=== PATIENT | female | born 1980 | race Caucasian/White ===

== ENCOUNTER 2016-07-23 06:31 | Inpatient (IN) | payer MEDICARE, MEDICAID ==
[~2016-07-23] VITALS: Ht 167.6 cm; Wt 79.1 kg
--- NOTE | ~2016-07-23 | CATH ---
Cardiac Diagnostic + PCI Report Demographics Patient Name TERA Keyes Gender Female Date of 1980 Age 35 year(s) Patient Number [id number] Date of Study 07/26/2016 Visit Number [id number] Room Number 416 [employer] ID Ht 167.64 cm Wt 84.82 kg Accession Number [id number] BSA 1.94 m kg/m Referring Minor Saeed Primary Physician Physician Caroline Castano MD Secondary Physician Physician Louie Diagnostic Eyad MORRIS Assisting Physician Physician Louie Interventional Eyad MORRIS Physician Gymnasium Teacher Physician Louie Findings and Conclusions Diagnostic Findings and Conclusion 1. Severe single vessel CAD with Prox LAD 70%. Diagnostic Recommendations 1. FFR of LAD Interventional Findings and Conclusion 1. iFR of 0.56 indicating this was hemodynamically significant. 2. IVUS pre and post PCI for sizing of stent. MLA of 2.4 mm2. 3. Successful PCI to Prox LAD with 3.5 x 28 Synergy stent. Interventional Recommendations 1. DAPT for minimum of 1 year and risk factor modification. Procedure Description The patient was brought to the diagnostic cardiac catheterization-laboratory in the fasting, non-sedated state. Informed consent was obtained in the written and verbal form after the risks and benefits were explained. The patient had no further questions and agreed to proceed. The planned puncture-incision site(s) were shaved and prepped with ChloraPrep and draped in the usual sterile manner. Conscious sedation, supplemental oxygen, and pain control medications were delivered by a registered nurse under physician guidance. Surface ECG rhythm, blood pressure measurement, and pulse oximetry were monitored throughout the procedure. Arterial access. The right femoral access site was infiltrated with lidocaine. The vessel was entered with the Seldinger technique. A 6F sheath was advanced into the vessel and used for catheter placement. Selective left coronary angiography. A catheter was advanced into the left coronary vessel ostium under Fluoroscopic guidance. Contrast was injected by hand. Images were obtained in multiple projections. Selective right coronary angiography. A catheter was advanced into the right coronary vessel ostium under fluoroscopic guidance. Contrast was injected by hand. Images were obtained in multiple projections. Left heart catheterization with ventriculography. A catheter was advanced across the aortic valve to the left ventricle under fluoroscopic guidance. Resting hemodynamics were obtained. With the catheter at the left ventricular apex, contrast was injected. Images were obtained in BAHRAINI projections. Post-ventriculography LV pressure was obtained. The catheter was gradually withdrawn into the aorta with continuous pressure recording. iFR measurement was performed. The Prox LAD vessel was entered with a guiding catheter. The iFR wire was normalized and then advanced across the lesion. Measurements were taken. IVUS was performed. The prox LAD vessel was cannulated. An .014 interventional wire was advanced across the lesson into the distal vessel. The IVUS catheter was advanced into position and imaging was performed. Vessel dimensions were measured. Angioplasty and Stent Placement: A XB 3.5 guiding catheter was used to intubate the vessel. A 0.14 wire was then used to cross the lesion. A 3.0 x 15 Emerge balloon catheter was placed across the lesion and inflated. The balloon catheter was then removed. A 3.5 x 28 Drug Eluting Stent was placed and inflated. Post placement angiograms were performed. Arterial artery hemostasis was achieved with Perclose. The patient was transferred to a regular nursing floor via cart accompanied by a nurse. The patient left the laboratory in stable condition. Diagnostic Cath Status: Urgent Procedure Procedure Type Diagnostic procedure:Angiography:, Coronary Angios w/[facility] PCI procedure:Drug Eluting Coronary Stent:, LAD, Additional Imaging:, FFR/iFR:, IVUS:, Initial Vessel Indications: Shortness of breath, Hyperlipidemia, Hypertension, CHF, Diabetes, Acute Heart Failure, Cardiomyopathy and Tachycardia. The procedure was explained in detail to the patient. Risks, complications and alternative treatments were reviewed. Written consent was obtained. Medications Reviewed with Patient prior to Procedure. Complications: No Complication. Angiographic Findings Dominance: Right Cardiac Arteries and Lesion Findings LMCA: Normal (0% Stenosis). LAD: Abnormal. Lesion on Prox LAD: 60% stenosis . Devices used - VERRATA. Number of passes: 1. - CATH BAL RX EMERGE 3.0X15. 1 inflation(s) to a max pressure of: 10 marlen. - CATH STENT SYNERGY 3.5 X 28. 1 inflation(s) to a max pressure of: 16 marlen. Lesion on Mid LAD: 50% stenosis . Lesion on Dist LAD: 60% stenosis . LCx: Normal (0% Stenosis). RCA: Normal (0% Stenosis). Coronary Tree Procedure Data Procedure Date Date: 07/26/2016Start: 10:32 AM Entry Locations - Percutaneous access was performed through the Right Femoral artery (Primary location). A 6 Fr sheath was inserted. Hemostasis was successfully obtained using Perclose ProGlide (Reddy). Procedure Medications Order and Administration + + + +--------+ !Time !Medication !Dosage !Route ! + + + +--------+ !07/26/2016 10:30 AM !Versed !2 mg !I.V. ! + + + +--------+ 07/26/2016 10:30 AM !Fentanyl !50 mcg !I.V. ! + + + +--------+ 07/26/2016 10:30 AM !Sodium Chloride !10 ml !I.V. ! + + + +--------+ 07/26/2016 11:13 AM !Heparin (ACC_3) !5000 units !I.V. ! + + + +--------+ !07/26/2016 11:04 AM !Fentanyl !50 mcg !I.V. ! + + + +--------+ !07/26/2016 11:17 AM !Oxygen !4 l/min !NC ! + + + +--------+ !07/26/2016 11:35 AM !Heparin (ACC_3) !3000 units !I.V. ! + + + +--------+ !07/26/2016 11:49 AM !Fentanyl !50 mcg !I.V. ! + + + +--------+ !07/26/2016 11:51 AM !Heparin (ACC_3) !2000 units !I.V. ! + + + +--------+ !07/26/2016 11:33 AM !Brilinta (Ticagrelor) (ACC_20) !180 mg !P.O. ! + + + +--------+ Devices Used - ACATH 6FR MULTIPACK CATHETERSwas used for:Coronary Angios. - ACATH 5F PRC CATHETER 100CMwas used for:Right coronary angiography. - AGUIDE CATHETER 6FR XB 3.5 100CMwas used for:Fractional Flow [place] measurments. - ACATH 6FR PIG 145 110CM CATHETERwas used for:LV Pressures. - AGUIDELINER CATHETER. Contrast Material - Isovue 752775 ml Fluoroscopy Dose: Diagnostic: 1606 mGy. Total: 1606 mGy. Medical History Allergies - Other:(PCN, ZITHROMAX, CEPHALOSPORINS, TETANUS VACCINE, FLUOXETINE, SERTRALINE). Risk Factors The patient risk factors include:treated hypertension, insulin-treated diabetes mellitus, chronic lung disease, last creatinine: 1 mg/dl, creatinine clearance: 103.14 ml/min, dyslipidemia and prior heart failure . Admission Data Admission Date: 07/23/2016 Admission Time: 09:40 AM Insurance Payors: Medicare. Clinical Evaluation Leading to Procedure Diagnosed on 07/26/2016 08:00 AM. - The patient's CAD presentation was assessed as: Unstable angina. - The patient's anginal syndrome during the past two weeks was assessed as: Class III according to the [place] Cardi[employer] Classification System (CCS). 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 Hemodynamics Condition: Rest O2 Consumption: Estimated: 220.49Heart Rate: 98 bpm Pressures (mmHg) +-----+ + !Site !Pressure ! +-----+ + !AO !134/82 (99) ! +-----+ + !LV !117/5 ,17 ! +-----+ + !AO !114/68 (86) ! +-----+ + !LV !126/7 ,22 ! +-----+ + Valve Gradients and Areas + +---------+---------+---------+ +---------+ + !Valve !Peak !Mean !Area !Index !Flow !Source ! + +---------+---------+---------+ +---------+ + !Aortic !13 !19 ! ! ! ! ! + +---------+---------+---------+ +---------+ + !Aortic !13 !19 ! ! ! ! ! + +---------+---------+---------+ +---------+ + Shunts Oxygen Values O2 Capacity 137.36 O2 Consumption 220.49 Discharge Data Discharge Date: 07/28/2016 Hospital Status: Inpatient Signatures
--- NOTE | 2016-07-23 17:07 | ER ---
ADMIT: 07/23/2016 RM/LOC: 420 [facility] MR#: [id number] [address] [address] FADY HALEY [address] [place] [address] Emergency Room Report SEX: F AGE: 35 : 1980 DATE: 07/23/2016 ADDENDUM: This is a 35-year-old white female with multiple comorbidities, but essentially she has cardiac myopathy with congestive heart failure. She was seen yesterday by Cardiology, they had done some tests and echoes, results show that she is somewhat fluid overloaded. 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 She does have hypertension, diabetes, depression, and higher functioning mental retardation according to old records. Has had some multiple surgeries as well. At this time, we put an IV in her and gave her 40 of Lasix after I talked to Dr. Castano. Dr. Gaxiola, her primary care will admit who was on-call for her. CONDITION ON DISCHARGE: Serious but stable. Sidney Keyes MD/ alyssa JOB #: [id number] CC: Christophe Gaxiola MD, Attending Physician Christophe Gaxiola MD, Family Physician
[2016-07-29] MEDS ORDERED: CRESTOR40 MG PO (11:34)
[2016-07-29] MEDS ORDERED: [UNRECOGNIZED DRUG - OTHER] PO (11:34)
[2016-07-29] MEDS ORDERED: SENNA S TABLET1 EACH PO (11:35)
[2016-07-29] MEDS ORDERED: GLUCOPHAGE-DPS500 MG PO (11:35)
[2016-07-29] MEDS ORDERED: GLIMEPIRIDE4 MG PO (11:36)
[2016-07-29] MEDS ORDERED: FEOSOL-DPS325 MG PO (11:36)
[2016-07-29] MEDS ORDERED: PRILOSEC DPS20 MG PO (11:36)
[2016-07-29] MEDS ORDERED: LASIX40 MG PO (11:36)
[2016-07-29] MEDS ORDERED: VITAMIN D1000 UNIT PO (11:36)
[2016-07-29] MEDS ORDERED: CORLANOR7.5 MG PO (11:37)
[2016-07-29] MEDS ORDERED: COREG DPS12.5 MG PO (11:37)
[2016-07-29] MEDS ORDERED: LANTUS100 UNITS/ SQ (11:37)
[2016-07-29] MEDS ORDERED: KLOR-CON M2020 ME1 PO (11:38)
[2016-07-29] MEDS ORDERED: ENTRESTO 24 MG1 EACH PO (11:38)
[2016-07-29] MEDS ORDERED: ASA CHILDREN'S81 MG PO (11:38)
[2016-07-29] MEDS ORDERED: FLONASE 0.05% D16 GM NS (11:38)
[2016-07-29] MEDS ORDERED: BRILINTA90 MG PO (11:38)
[2016-07-29] MEDS ORDERED: NOVOLOG100 UNIT/2 SQ (11:39)
[2016-07-29] MEDS ORDERED: GLUTOSE 1537.5 GM PO ×2 (11:40→11:41)
[2016-07-29] MEDS ORDERED: NITROSTAT0.4 MG SL (11:41)
[2016-07-29] MEDS ORDERED: MAALOX DPS30 ML PO (11:41)
[2016-07-29] MEDS ORDERED: TYLENOL DPS325 MG PO (11:41)
[2016-07-29] MEDS ORDERED: SURFAK DPS240 MG PO (11:41)
--- NOTE | 2016-08-05 19:48 | HP ---
ADMIT: 07/23/2016 RM/LOC: 420 [facility] MR#: [id number] [address] [address] FADY HALEY [address] [place] [address] History and Physical SEX: F AGE: 35 : 1980 DATE OF SERVICE: 07/23/2016 CHIEF COMPLAINT: Shortness of breath. HISTORY OF PRESENT ILLNESS: This is a very pleasant 35-year-old white female, who normally is cared for by Dr. Gaxiola in our office, who presented to the emergency room with shortness of breath. She apparently had been over at [facility] yesterday, undergoing workup for possible cardiomyopathy, had some volume overload at that point, and about midnight, became extremely short of breath, could not lay down flat, had to sit up. Got through the rest of the night, but was pretty uncomfortable. She came to the emergency room this morning where she was found to have acute exacerbation of systolic heart failure and was given IV Lasix and now is being admitted for further cardiac workup and diuresis. She does complain of some left-sided chest discomfort. It is more left lateral area, it is more when she coughs. She has had pneumonia before and she is obviously concerned about developing this again. PAST MEDICAL HISTORY: Remarkable for hypertension, diabetes mellitus type 2, diverticulosis, mental disability, generalized anxiety disorder, depression, migraine headaches, gastroesophageal reflux disease, chronic kidney disease, hyperlipidemia, hypothyroidism, prior history of nonischemic cardiomyopathy. SURGERIES: Include tympanostomy tubes, cholecystectomy, left ear surgery, and a right bunionectomy. CURRENT MEDICATIONS: Include: 1. Fluticasone 2 sprays b.i.d. 2. Lantus 20 units subcu at bedtime. 3. Carvedilol 12.5 mg 1 tab b.i.d. 4. Hydralazine 100 mg t.i.d. 5. Corlanor 7.5 mg b.i.d. 6. Ferrous sulfate 325 mg b.i.d. 7. Hydrochlorothiazide 25 mg daily. 8. Spironolactone 50 mg daily. 9. Glimepiride 4 mg b.i.d. 10.Losartan 100 mg daily. 11.Furosemide 10 mg daily. 12.Amlodipine 5 mg b.i.d. 13.Verapamil ER 240 mg b.i.d. 14.Omeprazole 20 mg b.i.d. 15.Flecainide 150 mg b.i.d. 16.Vitamin D 1000 International Units daily. 17.Senna-S 8.6/50 mg at bedtime. 18.Amitriptyline 150 mg at bedtime. 19.Metformin 1000 mg b.i.d. 20.Crestor 40 mg b.i.d. ALLERGIES: INCLUDE CEPHALOSPORINS, CEPHALEXIN, FLUOXETINE, SERTRALINE, AND TETANUS. ADMIT: 07/23/2016 RM/LOC: 420 [facility] MR#: [id number] [address] [address] [place] [address] History and Physical SEX: F AGE: 35 : 1980 FAMILY HISTORY: Father had coronary artery disease and hypertension. Mother with hypertension. SOCIAL HISTORY: She is single, is a student at [employer]. Does not smoke or drink alcohol. REVIEW OF SYSTEMS: GENERAL: No fevers or chills. HEENT: No headaches, blurry vision, double vision. CARDIAC: Per HPI. PULMONARY: As per HPI. GI: No nausea, vomiting. : No dysuria, urgency, frequency. ENDOCRINE: No polyuria or polydipsia. PSYCH: History of anxiety and depression which is stable. All others are negative. OBJECTIVE: VITAL SIGNS: Blood pressure is 137/85, pulse 108, respirations 20, and temp 97.1. GENERAL: She is in no acute distress. She is alert and oriented. HEENT: Pupils are reactive. Conjunctivae are clear. Clear nasal mucosa. Clear oropharynx. Moist mucous membranes. NECK: Soft and supple without lymphadenopathy. No thyromegaly. LUNGS: With decreased breath sounds. HEART: Regular. ABDOMEN: Obese, soft, nontender. EXTREMITIES: No cyanosis, no clubbing, no edema. NEUROLOGIC: Cranial nerves II through XII are grossly intact. No focal deficits. LAB/X-RAY DATA: Shows a chest x-ray with interstitial edema, small bilateral pleural effusions and cardiomegaly. White count is 9400, hemoglobin 11.1, and platelets 337,000. Sodium 140, potassium 4.0, chloride 108, CO2 of 23, BUN 9, creatinine 0.9, glucose 203, calcium 8.2, total bilirubin is 1.0, total protein 6.2, albumin 3.2, alkaline phosphatase 100, AST 14, ALT 22, calcium 8.8. ProBNP is 10,957. ADMIT: 07/23/2016 RM/LOC: 420 [facility] MR#: [id number] [address] [address] [facility] [place] [address] History and Physical SEX: F AGE: 35 : 1980 ASSESSMENT: 1. Acute systolic heart failure. 2. Hypertension. 3. Diabetes mellitus type 2. 4. Mental disability. 5. Gastroesophageal reflux disease. 6. Generalized anxiety disorder. 7. Depression. PLAN: We will admit, start IV Lasix. Cardiology has been consulted. They will follow up on further workup. We will change treatment as hospital course dictates. Zach Armendariz MD/ alyssa JOB #: [id number] CC: Christophe Gaxiola, Attending Physician Christophe Gaxiola, Family Physician
--- NOTE | 2016-08-08 08:51 | DS ---
ADMIT: 07/23/2016 RM/LOC: 416 [facility] MR#: [id number] [address] [place] [address] [place], [place] [address] FADY HALEY [address] [address] General Discharge Summary SEX: F AGE: 35 : 1980 ADMISSION DATE: 07/23/2016 DISCHARGE DATE: 07/28/2016 FINAL DIAGNOSES: 1. Acute onset systolic congestive heart failure. 2. Ongoing sinus tachycardia. 3. Angina. 4. Systemic hypertension. 5. Type 2 insulin-dependent diabetes. 6. Mild mental disability. 7. Generalized anxiety disorder. 8. Depression. 9. Gastroesophageal reflux. 10.Chronic kidney disease. 11.Hyperlipidemia. 12.Hypothyroidism. 13.History of nonischemic cardiomyopathy. 14.Mild iron deficiency anemia. BRIEF HISTORY: This is a 35-year-old, woman presented to the emergency room with increasing shortness of breath. She had been at [facility] today prior, undergoing workup for possible cardiomyopathy and had volume overload at that point. At about midnight and the morning of admission, she became extremely short of breath and could lie flat and had to come in. She was given IV Lasix in the ER and was admitted for further evaluation and treatment. SIGNIFICANT LAB AND X-RAY: On admission; CBC showed hemoglobin 11 g with mildly microcytic indices, platelets of 337,000, white count 9400. Serial CBCs were followed, and by 07/28, her hemoglobin was 11.8, still with mildly microcytic indices with a white count of 3800. Serial ACTs were followed. On admission; CMP was normal, but for a glucose of 203 mg/dL, calcium of 8.2 mg/dL, and albumin 3.2 g/dL. On admission; proBNP was 10,957 pg/mL. Cardiac enzymes on admission showed them all to be normal but for a 3rd troponin minimally elevated at 0.044 ng/mL (normal 0.00 to 0.040). On 07/25; procalcitonin was 0.09 ng/mL, and lactic acid was 1.4 mmol/L. By 07/27; proBNP was 3108 pg/mL. Serum iron was 23 ug/dL (normal 37 to 170). On 07/27; total cholesterol was 74 mg/dL, triglycerides 107 mg/dL, HDL of 27 mg/dL, and LDL of 26 mg/dL. ADMIT: 07/23/2016 RM/LOC: 416 [facility] MR#: [id number] [address] [address] [place] [address] General Discharge Summary SEX: F AGE: 35 : 1980 By 07/28, BMP was normal, but for a creatinine of 1.2 mg/dL and glucose of 124 mg/dL. Serial bedside blood sugars were followed. On 07/27; ferritin was 29 ng/mL (normal 8 to 250), and C-reactive protein was 2.17 mg/dL. Chest x-ray on admission was read as "interstitial edema with small bilateral pleural effusions. The cardiac silhouette is increased in size compared to prior study. Findings suggest probable early congestive heart failure/fluid overload." Serial chest x-rays were followed and showed continued improvement. By 07/27, it was read as "negative portable chest." On 07/26/2016, she underwent heart catheterization with the findings of severe single-vessel coronary artery disease, and she received a drug-eluting stent to the proximal LAD after successful PCI, so she needs another diagnosis that would be #2 and that would be critical coronary artery disease. EKG on admission was read as "sinus tachycardia, lateral ST-T abnormalities nonspecific, compared to 04/20/2016, no significant change." Serial EKGs were followed, and by 07/26, it showed no significant change. HOSPITAL COURSE: The patient was admitted through the emergency room and imaging and laboratory studies outlined above were begun. She was placed on telemetry with routine telemetry orders. She was given Lasix 40 mg IV twice daily, continued on her home medications. Cardiology consult was requested, and they were kind enough to see her. They added hydralazine 10 mg IV q.4 hours for blood pressure greater than 140 and stopped her flecainide. By later on 07/23, she was allowed tramadol for pain. She was placed on low- dose Humalog per protocol with q.i.d. Accu-Cheks. She was given a few doses of mag sulfate. Over the next 24 hours, she was transferred to critical care with routine critical care orders for low blood pressure and dopamine drip was initiated for pressures into the high 50s systolic. Fluid boluses were also administered. Her antihypertensives were held. On 07/26, she underwent her catheterization with findings of as noted above - critical stenosis proximal LAD. She tolerated the catheterization well. Post catheterization orders were followed. By 07/27, she was feeling better. Answered questions appropriately. Her lungs were clearing. Adjustments were made in her carvedilol dose and she was started on Entresto 24/2.5 b.i.d. and Lasix 40 mg b.i.d. LifeVest consult was requested prior to discharge. By 07/28, she was clinically stable. There were no further complications. She had put out 2770 mL more than she took in and the measuring clerk felt it was ADMIT: 07/23/2016 RM/LOC: 416 [facility] MR#: [id number] [address] [address] FADY HALEY [address] [place] [address] General Discharge Summary SEX: F AGE: 35 : 1980 safe to dismiss her to home. DISCHARGE MEDICATIONS: On dismissal, her medications included: 1. Amaryl 4 mg b.i.d. 2. Aspirin 81 mg daily. 3. Brilinta 90 mg b.i.d. 4. Coreg 12.5 mg b.i.d. 5. Crestor 40 mg at bedtime. 6. Elavil 150 mg at bedtime. 7. Entresto one tab b.i.d. 8. Ferrous sulfate 325 mg b.i.d. 9. Klor-Con 20 mEq daily. 10.Lasix 40 mg daily. 11.Omeprazole 20 mg daily. 12.Corlanor 7.5 mg b.i.d. 13.Senokot 1 tab at bedtime. 14.Vitamin D 1000 units daily. 15.Flonase nasal spray 2 sprays b.i.d. 16.Lantus insulin 20 units at bedtime. 17.Sliding scale NovoLog insulin. PRN orders for: 1. Glucose. 2. Maalox. 3. Surfak. 4. Tylenol. 5. Nitrostat. Arrangements were made for followup in my office in about 10 days, and she will be seen by [facility] in that same time frame. She was also placed back on metformin 1000 mg b.i.d. CONDITION ON DISCHARGE: Stable with above treatment. FINAL DISPOSITION: As noted. PROGNOSIS: Guarded. Christophe Gaxiola MD/ alyssa JOB #: [id number] CC: Christophe Gaxiola MD, Attending Physician Christophe Gaxiola MD, Family Physician Baron Yañez MD
--- NOTE | 2016-08-30 14:57 | CO ---
ADMIT: 07/23/2016 RM/LOC: 420 [facility] MR#: [id number] [address] [address] [facility] [address] [address] Consultation SEX: F AGE: 35 : 1980 DATE OF CONSULTATION: 07/23/2016 ATTENDING PHYSICIAN: Christophe Gaxiola CONSULTING PHYSICIAN: Baron Yañez MD REASON FOR CONSULTATION: Acute heart failure. HISTORY OF PRESENT ILLNESS: Ms. Haley is a pleasant 35-year-old, white female, who is normally followed by Dr. Castano in [place], was actually seen by her yesterday with consult on her at the request of Dr. Armendariz for the heart failure. She has been dyspneic since midnight, had difficulty laying flat, been orthopneic. Denies any edema. She has been having some chest pressure and shortness of breath with exertion over the past week to 10 days. She denies any fevers, chills, or cough or cold symptoms. PAST MEDICAL HISTORY: 1. History of unexplained syncope. 2. History of unexplained cardiomyopathy. 3. Sinus tachycardia. 4. History of mental retardation. 5. Diabetes. 6. Hypertension. 7. Hyperlipidemia. 8. Anxiety. 9. Hypothyroidism. MEDICATIONS: Currently include: 1. Crestor 40 mg a day. 2. Amitriptyline 150 mg a day. 3. Metformin 1000 mg p.o. b.i.d. 4. Senna 8.6 q.evening. 5. Vitamin D 1000 mg q.a.m. 6. Flecainide 150 mg b.i.d. 7. Omeprazole 20 mg b.i.d. 8. Verapamil 240 mg b.i.d. 9. Amlodipine 5 mg b.i.d. 10.Furosemide 20 mg half tablet a day. 11.Losartan 100 mg a day. 12.Glimepiride 4 mg b.i.d. 13.Spironolactone 50 mg a day. 14.Hydrochlorothiazide 25 mg a day. 15.Ferrous sulfate 325 b.i.d. 16.Carvedilol 12.5 mg b.i.d. 17.Corlentor 7.5 mg b.i.d. 18.Lantus as directed. 19.Fluticasone as needed. ALLERGIES: INCLUDE KEFLEX, ZITHROMAX, PENICILLIN, EGGS, AND GREEN BEANS. ADMIT: 07/23/2016 RM/LOC: 420 [facility] MR#: [id number] [address] [address] [place] [address] Consultation SEX: F AGE: 35 : 1980 FAMILY HISTORY: Father with nonobstructive coronary disease. Mother with no history of coronary disease. No other heritable family issues to her knowledge or father's knowledge. SOCIAL HISTORY: She is currently enrolled [employer] as a student. She is a nonsmoker. Does not use drugs. REVIEW OF SYSTEMS: A full 12-point review of systems was obtained and deemed to be negative except for that stated above in HPI. PHYSICAL EXAMINATION: VITAL SIGNS: Today, her blood pressure is 170/80 with a heart rate in the 120s. She is afebrile. O2 sats 100% on room air. GENERAL: She is a pleasant, well-nourished, well-developed white female. She is in no acute distress. NECK: Mild JVD. HEART: Tachycardic. LUNGS: Clear. ABDOMEN: Soft. EXTREMITIES: Show no cyanosis, clubbing, or edema. MUSCULOSKELETAL: Normal. NEUROLOGIC: Normal. SKIN: [place], warm, and dry. LABORATORY AND ANCILLARY DATA: Are pending and available. EKG notes sinus tachycardia. Echocardiogram yesterday notes an EF around 25% to 30%. Labs are currently pending. Chest x-ray shows minimal pulmonary edema. ASSESSMENT AND PLAN: 1. Acute new onset systolic heart failure. 2. Sinus tachycardia. 3. Angina. 4. Diabetes. 5. Hypertension. Symptoms certainly are consistent with new onset acute cardiomyopathy and possible unstable angina. We will diurese her and monitor her response to this. We will adjust her blood pressure medications to see if this helps with her symptomatology. Plan on cardiac catheterization, once euvolemic. We will discontinue her flecainide and monitor her response to this as well. Baron Yañez MD/ alyssa JOB #: [id number] CC: Christophe Gaxiola, Attending Physician Christophe Gaxiola, Family Physician
[2016-12-03] MEDS ORDERED: ELAVIL-DPS50 MG PO (20:12)
[2016-12-03] MEDS ORDERED: GLUCOPHAGE-DPS500 MG PO (20:12)
[2016-12-03] MEDS ORDERED: CRESTOR40 MG PO (20:12)
[2016-12-03] MEDS ORDERED: VITAMIN D1000 UNIT PO (20:13)
[2016-12-03] MEDS ORDERED: PRILOSEC DPS20 MG PO (20:13)
[2016-12-03] MEDS ORDERED: SENNA PLUS TAB1 EACH PO (20:13)
[2016-12-03] MEDS ORDERED: LASIX DPS40 MG PO (20:13)
[2016-12-03] MEDS ORDERED: CORLANOR7.5 MG PO (20:14)
[2016-12-03] MEDS ORDERED: CARVEDILOL25 MG PO (20:14)
[2016-12-03] MEDS ORDERED: ASPIRIN EC81 MG PO (20:14)
[2016-12-03] MEDS ORDERED: BRILINTA90 MG PO (20:14)
[2016-12-03] MEDS ORDERED: AMARYL DPS4 MG PO (20:14)
[2016-12-03] MEDS ORDERED: ENTRESTO 49 MG1 EACH PO (20:15)
[2016-12-03] MEDS ORDERED: TOUJEO SOL300 UNIT/1 SQ (20:15)
[2016-12-03] MEDS ORDERED: KLOR-CON M2020 ME1 PO (20:15)
[2016-12-03] MEDS ORDERED: NITROSTAT0.4 MG SL (20:15)
[2016-12-03] MEDS ORDERED: ADVAIR DIS1 PUFF/DO1 IH (20:16)
[2016-12-03] MEDS ORDERED: PROVENTIL HFA6.7 GM IH (20:16)
[2016-12-03] MEDS ORDERED: GLUTOSE 1537.5 GM PO (20:16)
[2016-12-03] MEDS ORDERED: TYLENOL DPS325 MG PO (20:17)
== END 2016-07-28 14:09 | disposition home or self-care (01) | DRG 246 ==
LOC: ER 06:31 → 4PCU 09:40 → 3ICU 09:40 → 4PCU 07-27 04:57
PROVIDERS: ADMIT Family Medicine
PROC: 03HY32Z Insertion of Monitoring Device into Upper Artery, Percutaneous Approach (ICD-10-PCS; principal; 2016-07-25)
PROC: 4A023N7 Measurement of Cardiac Sampling and Pressure, Left Heart, Percutaneous Approach (ICD-10-PCS; 2016-07-26)
PROC: 4A033BC Measurement of Arterial Pressure, Coronary, Percutaneous Approach (ICD-10-PCS; 2016-07-26)
PROC: B240ZZ3 Ultrasonography of Single Coronary Artery, Intravascular (ICD-10-PCS; 2016-07-26)
PROC: B2111ZZ Fluoroscopy of Multiple Coronary Arteries using Low Osmolar Contrast (ICD-10-PCS; 2016-07-26)
PROC: 027034Z Dilation of Coronary Artery, One Artery with Drug-eluting Intraluminal Device, Percutaneous Approach (ICD-10-PCS; 2016-07-26)
DX: I13.0 Hypertensive heart and chronic kidney disease with heart failure and stage 1 through stage 4 chronic kidney disease, or unspecified chronic kidney disease (principal); I50.21 Acute systolic (congestive) heart failure; N17.9 Acute kidney failure, unspecified; I42.9 Cardiomyopathy, unspecified; I95.9 Hypotension, unspecified; E11.649 Type 2 diabetes mellitus with hypoglycemia without coma; K57.90 Diverticulosis of intestine, part unspecified, without perforation or abscess without bleeding; I20.9 Angina pectoris, unspecified; E86.9 Volume depletion, unspecified; F79 Unspecified intellectual disabilities; I51.7 Cardiomegaly; F41.1 Generalized anxiety disorder; R00.0 Tachycardia, unspecified; F32.9 Major depressive disorder, single episode, unspecified; G43.909 Migraine, unspecified, not intractable, without status migrainosus; K21.9 Gastro-esophageal reflux disease without esophagitis; N18.9 Chronic kidney disease, unspecified; E78.5 Hyperlipidemia, unspecified; E03.9 Hypothyroidism, unspecified; Z79.4 Long term (current) use of insulin; Z79.84 Long term (current) use of oral hypoglycemic drugs; Z82.49 Family history of ischemic heart disease and other diseases of the circulatory system

== ENCOUNTER 2016-07-30 12:44 | Emergency (ER) | payer MEDICARE, MEDICAID ==
[~2016-07-30 12:44] MED LIST: ASA CHILDREN'S81 MG PO; BRILINTA90 MG PO; COREG DPS12.5 MG PO; CORLANOR7.5 MG PO; CRESTOR40 MG PO; ENTRESTO 24 MG1 EACH PO; FEOSOL-DPS325 MG PO; FLONASE 0.05% D16 GM NS; GLIMEPIRIDE4 MG PO; GLUCOPHAGE-DPS500 MG PO; GLUTOSE 1537.5 GM PO; KLOR-CON M2020 ME1 PO; LANTUS100 UNITS/ SQ; LASIX40 MG PO; MAALOX DPS30 ML PO; NITROSTAT0.4 MG SL; NOVOLOG100 UNIT/2 SQ; PRILOSEC DPS20 MG PO; SENNA S TABLET1 EACH PO; SURFAK DPS240 MG PO; TYLENOL DPS325 MG PO; VITAMIN D1000 UNIT PO; [UNRECOGNIZED DRUG - OTHER] PO
--- NOTE | 2016-08-07 15:21 | ER ---
ADMIT: 07/30/2016 RM/LOC: ER [facility] MR#: [id number] [id number] [facility] [address] [place], [place] [address] FADY HALEY [address] [place] [address] Emergency Room Report SEX: F AGE: 35 : 1980 DATE: 07/30/2016 ADDENDUM: See T-sheet for complete H and P. This 35-year-old, female comes in complaining of some symptoms of numbness and tingling in her right upper extremity, primarily her right hand and her right foot. This began about 5-6 hours ago. She states she feels like they are both tingly and quite numb and they were purplish colored. This lasted a short period of time, but wanted to come in and get it checked out as she still has some tingling in both the hand and the foot. PAST MEDICAL HISTORY: Significant for hypertension, diabetes, GERD, and cardiac disease and she has actually recently had a stent placed in her LAD a week ago. Actually did cath her through her right radial wrist initially and then had to do a cath through her right femoral. PHYSICAL EXAMINATION: She has good color in both the hand and the foot, it is equal bilaterally. She has good cap refill, good pulses. Good motor strength, but she does have some decreased sensation subjectively. I think it is extremely unlikely she has any sort of vascular issue as these both came on the exact same time, which is exceedingly unlikely. I did end up getting a head CT, which is entirely normal and the patient states that her symptoms are better even while she has been here in the ER and almost resolved. She does have a diagnosis of some mild mental retardation. I have discussion with the patient and her dad who is here with her that I think it is unlikely she is having any acute stroke symptoms and at this point, they are both comfortable being discharged home. I did contact Dr. Gaxiola, her primary care physician, and made aware that she was here. Her symptoms had improved and that I did not believe this is vascular and her head CT was normal. She is to follow up Dr. Gaxiola's office as needed and return for any concerning symptoms. Issa Dickerson MD/ alyssa JOB #: [id number] CC: Issa Dickerson MD, Attending Physician
[2016-12-03] MEDS ORDERED: CRESTOR40 MG PO (20:12)
[2016-12-03] MEDS ORDERED: ELAVIL-DPS50 MG PO (20:12)
[2016-12-03] MEDS ORDERED: GLUCOPHAGE-DPS500 MG PO (20:12)
[2016-12-03] MEDS ORDERED: SENNA PLUS TAB1 EACH PO (20:13)
[2016-12-03] MEDS ORDERED: PRILOSEC DPS20 MG PO (20:13)
[2016-12-03] MEDS ORDERED: LASIX DPS40 MG PO (20:13)
[2016-12-03] MEDS ORDERED: VITAMIN D1000 UNIT PO (20:13)
[2016-12-03] MEDS ORDERED: BRILINTA90 MG PO (20:14)
[2016-12-03] MEDS ORDERED: CORLANOR7.5 MG PO (20:14)
[2016-12-03] MEDS ORDERED: ASPIRIN EC81 MG PO (20:14)
[2016-12-03] MEDS ORDERED: CARVEDILOL25 MG PO (20:14)
[2016-12-03] MEDS ORDERED: AMARYL DPS4 MG PO (20:14)
[2016-12-03] MEDS ORDERED: KLOR-CON M2020 ME1 PO (20:15)
[2016-12-03] MEDS ORDERED: ENTRESTO 49 MG1 EACH PO (20:15)
[2016-12-03] MEDS ORDERED: TOUJEO SOL300 UNIT/1 SQ (20:15)
[2016-12-03] MEDS ORDERED: NITROSTAT0.4 MG SL (20:15)
[2016-12-03] MEDS ORDERED: PROVENTIL HFA6.7 GM IH (20:16)
[2016-12-03] MEDS ORDERED: ADVAIR DIS1 PUFF/DO1 IH (20:16)
[2016-12-03] MEDS ORDERED: GLUTOSE 1537.5 GM PO (20:16)
[2016-12-03] MEDS ORDERED: TYLENOL DPS325 MG PO (20:17)
== END 2016-07-30 14:43 | disposition home or self-care (01) ==
LOC: ER 12:44
DX: R20.2 Paresthesia of skin (principal); E11.9 Type 2 diabetes mellitus without complications; I10 Essential (primary) hypertension; Z88.1 Allergy status to other antibiotic agents; Z88.8 Allergy status to other drugs, medicaments and biological substances; Z79.82 Long term (current) use of aspirin; Z79.899 Other long term (current) drug therapy

== ENCOUNTER 2016-09-28 17:30 | Inpatient (IN) | payer MEDICARE, MEDICAID ==
[~2016-09-28] VITALS: Ht 167.6 cm; Wt 87.1 kg
[2016-10-01] MEDS ORDERED: [UNRECOGNIZED DRUG - OTHER] PO (17:57)
[2016-10-01] MEDS ORDERED: GLUCOPHAGE1000 MG PO (17:57)
[2016-10-01] MEDS ORDERED: CRESTOR40 MG PO (17:57)
[2016-10-01] MEDS ORDERED: PRILOSEC DPS20 MG PO (17:58)
[2016-10-01] MEDS ORDERED: SENOKOT DPS8.6 MG PO (17:58)
[2016-10-01] MEDS ORDERED: VITAMIN D1000 UNI1 PO (17:58)
[2016-10-01] MEDS ORDERED: LASIX DPS40 MG PO (17:58)
[2016-10-01] MEDS ORDERED: AMARYL DPS4 MG PO (17:59)
[2016-10-01] MEDS ORDERED: COREG DPS12.5 MG PO (17:59)
[2016-10-01] MEDS ORDERED: CORLANOR7.5 MG PO (18:00)
[2016-10-01] MEDS ORDERED: BRILINTA90 MG PO (18:00)
[2016-10-01] MEDS ORDERED: ENTRESTO 24 MG1 EACH PO (18:00)
[2016-10-01] MEDS ORDERED: ASA CHILDREN'S81 MG PO (18:00)
[2016-10-01] MEDS ORDERED: KLOR-CON M2020 ME1 PO (18:01)
[2016-10-01] MEDS ORDERED: PROAIR HFA8.5 GM IH (18:01)
[2016-10-01] MEDS ORDERED: ADVAIR DIS1 PUFF/DO1 IH (18:01)
[2016-10-01] MEDS ORDERED: GLUTOSE 1537.5 GM PO (18:02)
[2016-10-01] MEDS ORDERED: FLUTICASONE PRO16 GM NS (18:02)
[2016-10-01] MEDS ORDERED: NITROSTAT0.4 MG SL (18:02)
[2016-10-01] MEDS ORDERED: MAALOX DPS30 ML PO (18:03)
[2016-10-01] MEDS ORDERED: COLACE-DPS100 MG PO (18:03)
[2016-10-01] MEDS ORDERED: TYLENOL DPS325 MG PO (18:03)
[2016-10-01] MEDS ORDERED: FERAHEME510 MG/17 IV (18:05)
[2016-10-01] MEDS ORDERED: NOVOLOG100 UNIT/2 SQ (18:05)
--- NOTE | 2016-10-03 07:49 | HP ---
ADMIT: 09/28/2016 RM/LOC: 410 [facility] MR#: [id number] [address] [address] FADY HALEY [address] [address] History and Physical SEX: F AGE: 35 : 1980 DATE OF SERVICE: CHIEF COMPLAINT: Chest pain. HISTORY OF PRESENT ILLNESS: This is a 35-year-old white female, normally cared for by Dr. Gaxiola in our office, who presented to the emergency room with chest pain. She was in her usual state of health this morning. She took a nap, she woke up from a nap about 2:30 a.m. with severe substernal chest discomfort, which she describes as felt like an "elephant sitting on my chest." It did not radiate into her neck or to her shoulder, but it was associated with shortness of breath and diaphoresis. She was not nauseated, did not throw up. She came to the emergency room where she was given 3 sublingual nitroglycerin, which did not help her pain, but did help improve her hypertensive response. She did have a recent hospitalization for chest pain and shortness of breath ended up getting a recent stent, and she does state that this pain was exactly the same manner she had prior to having her stent. She continues to have some chest pain. She did have a mild bump in her troponin. She also reports a 5-pound weight gain from yesterday to today and therefore is being admitted for further workup and stabilization. PAST MEDICAL HISTORY: Remarkable for hypertension, cardiomyopathy, diabetes mellitus type 2, diverticulosis, mental disability, generalized anxiety disorder, depression, migraine headaches, gastroesophageal reflux disease, chronic kidney disease, hyperlipidemia, and hypothyroidism. PAST SURGICAL HISTORY: Surgeries include recent stent placement, AICD placement, tympanostomy tubes, cholecystectomy, left ear surgery, and right bunionectomy. CURRENT MEDICATIONS: Include: 1. Crestor 40 mg at bedtime. 2. Amitriptyline 150 mg at bedtime. 3. Metformin 1000 mg b.i.d. 4. Senna 8.6 mg daily. 5. Vitamin D 1000 mg q.a.m. 6. Omeprazole 20 mg b.i.d. 7. Furosemide 40 mg q.a.m. 8. Glyparamide 4 mg b.i.d. 9. Ferrous sulfate 325 mg b.i.d. 10.Carvedilol 25 mg b.i.d. 11.Corlanor 7.5 mg b.i.d. 12.Brilinta 90 mg b.i.d. 13.Baby aspirin 81 mg daily. 14.Entresto 24/26 two tabs b.i.d. 15.Klor-Con 20 mEq daily. 16.Advair 250/50 one inhalation b.i.d. 17.ProAir 2 puffs q.a.m. 18.NovoLog sliding scale. 19. control every 3 months. ADMIT: 09/28/2016 RM/LOC: 410 [facility] MR#: [id number] [id number] [address] [place] [address] History and Physical SEX: F AGE: 35 : 1980 20.Fluticasone 2 sprays b.i.d. 21.Nitrostat p.r.n. 22.Glutose p.r.n. ALLERGIES: INCLUDE CEPHALOSPORINS, FLUOXETINE, SERTRALINE, AND TETANUS. FAMILY HISTORY: Father with coronary artery disease and hypertension. Mother with hypertension. SOCIAL HISTORY: She is single, does not smoke or drink alcohol. Her father is here and is involved in her care. REVIEW OF SYSTEMS: GENERAL: No fevers or chills. HEENT: No headaches, blurred vision, or double vision. CARDIAC: As per HPI. PULMONARY: As per HPI. GASTROINTESTINAL: No nausea, vomiting, or diarrhea. GENITOURINARY: No dysuria, urgency, or frequency. ENDOCRINE: No polyuria or polydipsia. PSYCHIATRIC: History of anxiety and depression, which is stable. All others are negative. PHYSICAL EXAMINATION: VITAL SIGNS: Blood pressure 182/112 initially, now it is down in the 160s systolic, pulse 116, respirations 20, and temp 97.4. GENERAL: She is in no acute distress. She is alert. She is oriented. HEENT: Pupils are reactive. Conjunctivae are clear. Clear nasal mucosa. Clear oropharynx. Moist mucous membranes. NECK: Soft and supple without lymphadenopathy. No thyromegaly. LUNGS: Clear to auscultation with normal respiratory effort. HEART: Tachycardic, but regular. ABDOMEN: Soft. It is nontender. EXTREMITIES: No cyanosis. No clubbing. There is 2+ lower extremity edema bilaterally, which she states is more than she normally has. SKIN: No rashes. NEUROLOGIC: Cranial nerves II through XII are grossly intact. No focal deficits. LABORATORY DATA: White count 9400, hemoglobin 8.7, and platelets 358,000. Sodium 139, potassium 4.2, chloride 106, CO2 of 23, BUN 17, creatinine 1.1, glucose 263, calcium 8.7, total bilirubin is 1.1, total protein 6.4, albumin 3.4, alkaline phosphatase 103, AST 15, ALT 25, magnesium 1.7. CK 38, MB 0.9, relative index 2.4. Troponin I is 0.095. ASSESSMENT: 1. Chest pain. ADMIT: 09/28/2016 RM/LOC: 410 [facility] MR#: [id number] [address] [address] FADY HALEY [address] [address] History and Physical SEX: F AGE: 35 : 1980 2. Coronary artery disease. 3. Cardiomyopathy. 4. Acute exacerbation of chronic systolic heart failure. 5. Hypertension. 6. Chronic kidney disease. PLAN: We will admit to tele, routine tele orders, check cardiac enzymes to rule out for AL, morphine sulfate for pain control. We will consult DIPAK. We will give a dose of Lasix 40 mg IV x1 now due to her lower extremity edema. Recheck lab in a.m. We will add proBNP. We will hold her metformin in case there is any sort of cardiac procedure, cover with sliding scale insulin. Her magnesium was a little bit low, so we will replace that as well. Zach Armendariz MD/ alyssa JOB #: [id number] CC: Christophe Gaxiola, Attending Physician Christophe Gaxiola, Family Physician
--- NOTE | 2016-10-03 17:50 | ER ---
ADMIT: 09/28/2016 RM/LOC: 410 [facility] MR#: [id number] [address] [address] FADY HALEY [address] [address] Emergency Room Report SEX: F AGE: 35 : 1980 DATE: 09/28/2016 ADDENDUM: This is a 35-year-old white female with history of cardiomegaly, heart disease, coming in with chest pain and shortness of breath. She has had a stent placed within this year. She has other risk factors. Chest x-ray shows cardiomegaly, but no overt failure. She does have significant pedal edema that has increased. She is also diabetic. Her blood sugar is 263. She has a troponin of 0.095, which is just slightly elevated, but knowing her risk, this will have to be trended. EKG, nothing acute, though she wears an external defibrillator. I spoke with Dr. Armendariz. We have given her nitroglycerin and morphine for her pain, but she will need to be admitted. CONDITION ON DISCHARGE: Serious, but stable. Sidney Keyes MD/ alyssa JOB #: [id number] CC: Christophe Gaxiola MD, Attending Physician Christophe Gaxiola MD, Family Physician
--- NOTE | 2016-10-07 22:34 | DS ---
ADMIT: 09/28/2016 RM/LOC: 410 [facility] MR#: [id number] [id number] [facility] [address] [place] [address] FADY HALEY [address] [address] General Discharge Summary SEX: F AGE: 35 : 1980 ADMISSION DATE: 09/28/2016 DISCHARGE DATE: 10/01/2016 FINAL DIAGNOSES: 1. Exacerbation of chronic systolic congestive heart failure. 2. Chest pain - exertional. 3. Iron deficiency anemia. 4. Systemic hypertension. 5. Known cardiomyopathy. 6. Type 2 diabetes. 7. Mental disability. 8. Generalized anxiety disorder and depression. 9. Gastroesophageal reflux disease. 10.Chronic kidney disease. 11.Hyperlipidemia. 12.Hypothyroidism. 13.Coronary artery disease - recent stent placement. 14.Automated implantable cardioverter-defibrillator placement. 15.Tympanostomy tubes, cholecystectomy, left ear surgery, and right bunionectomy by history. BRIEF HISTORY: This 35-year-old, woman, who woke up from a nap about 2:30 with severe substernal chest discomfort, which she described as "an elephant sitting on my chest." It did not radiate to her neck or shoulder, but was associated with shortness of breath and diaphoresis. She was not nauseated. She came to the emergency room where she was given 3 sublingual nitroglycerin, which did not help her pain, but did improve her hypertensive response. She was admitted for further evaluation and treatment. SIGNIFICANT LAB AND X-RAY: On 09/28; CBC showed hemoglobin 8.7 with microcytic indices, platelets of 358,000, and white count of 9400. Serial CBCs were followed, and by 10/01, her hemoglobin was up to 9.7, still with macrocytic indices, platelets of 285,000, and white count of 5800. Stool for occult blood x1 was positive on 10/01/2016. On 09/28; CMP was normal, but for a glucose of 263 mg/dL and albumin of 3.4 g/dL (normal 3.5 to 5.0). On admission, proBNP was 00155 pg/mL, and repeat on 10/01/2016 was 403 pg/mL. Lactic acid was 1.5 mmol/L on admission. Cardiac enzymes were performed x2 with her troponin minimally elevated at 0.095 ng/mL (normal less than 0.04), repeat 6 hours later was 0.094. On 09/28; magnesium level was 1.7 mg/dL (normal 1.8 to 2.6). Serial chemistries were followed, and by 10/01, her BMP was normal but for a ADMIT: 09/28/2016 RM/LOC: 410 [facility] MR#: [id number] [address] [address] [place] [address] General Discharge Summary SEX: F AGE: 35 : 1980 potassium of 3.6 mmol/L. On 09/30, lipid profile showed a total cholesterol of 116 mg/dL, triglycerides of 129 mg/dL, HDL of 22 mg/dL, and calculated LDL of 68 mg/dL. Serial bedside blood sugars were monitored. On 09/30; glycosylated hemoglobin was 7.7%. Free T4 was 1.17 ng/dL (normal 0.70 to 1.40), with a TSH of 4.010 uIU/L (normal 0.400 to 3.800). On 09/29; ferritin level was 11 ng/mL (normal 8 to 250). Serum iron was 22 ug/dL (normal 37 to 170) with total iron-binding capacity of 371 ug/dL (normal 250 to 450). Blood cultures obtained x2 on admission had no growth after 5 days' incubation. On admission, chest x-ray was read as "findings are fairly similar to prior exam with a cardiac silhouette at the upper limits of normal for size and mild interstitial prominence. Findings may be due to mild interstitial edema/inflammatory change." Chest x-ray of 09/30, showed "cardiomegaly without decompensation." EKG on admission was read as "sinus tachycardia, normal ECG except for rate" compared to 07/27/2016, no significant change. Serial EKGs were followed and showed no significant change, but for a mildly prolonged QT interval. HOSPITAL COURSE: The patient was admitted through the emergency room, and the imaging and laboratory studies outlined above were begun. She was placed on telemetry with routine telemetry orders. Cardiology consultation was requested, and they were kind enough to see her. She was placed on the "chest pain point of entry" ER protocol. She was given Lasix 40 mg IV initially and hydralazine 10 to 20 mg IV q.hour p.r.n. blood pressures greater than 180 and given 1 dose of mag sulfate 2 g IV slowly. She was allowed morphine sulfate for pain and Zofran and Dilaudid for nausea and pain. Subsequently, she was admitted to telemetry with routine telemetry orders and routine low-dose Humalog insulin was ordered with hypoglycemic protocol. By 09/29; she was still having some chest discomfort. Iron studies were ordered. She was given Lasix 40 mg IV that a.m. and mid afternoon. She was maintained on her usual Brilinta. Following [facility] evaluation, she was given Lasix 40 mg IV b.i.d. On 09/29, she was given a dose of Feraheme 510 mg IV (with plans repeated in 1 week). By 09/30, she was "feeling better." She had some inframammary intertrigo for which she was given Lotrisone cream. Adjustments were made in her potassium dose. She was seen by Physical Therapy, Occupational Therapy, and Social ADMIT: 09/28/2016 RM/LOC: 410 [facility] MR#: [id number] [facility] [address] [place] [address] FADY HALEY L [address] [address] General Discharge Summary SEX: F AGE: 35 : 1980 Service. Evening of 09/30, her blood pressures were in the 90/56 range, so her Coreg was held. By 10/01; she was clinically stable. It was felt safe to dismiss her to home. Arrangements were made for to be seen in the [facility] by Dr. Castano in 1 to 2 weeks. Her Coreg was decreased to 12.5 mg b.i.d. Arrangements were made for her to be seen in my office in 10 to 14 days with a CBC, BMP, proBNP, and serum HCG then (with plans to resume her Depo-Provera IM). DISCHARGE MEDICATIONS: On dismissal, her medications included: 1. Amaryl 4 mg b.i.d. 2. Aspirin 81 mg daily. 3. Brilinta 90 mg b.i.d. 4. Crestor 40 mg at bedtime. 5. Elavil 75 mg 2 at bedtime. 6. Entresto two tabs b.i.d. 7. Klor-Con 20 mEq b.i.d. 8. Omeprazole 20 mg b.i.d. 9. Senokot 8.6 mg at bedtime. 10.Vitamin D 1000 international units daily. 11.Advair 250/50 Diskus 1 inhalation b.i.d. 12.Proventil MDI p.r.n. 13.Flonase nasal spray 2 sprays both nostrils b.i.d. 14.Low-dose NovoLog per protocol. 15.Lasix 40 mg p.o. b.i.d. PRN orders for: 1. Colace. 2. Glutose. ADMIT: 09/28/2016 RM/LOC: 410 [facility] MR#: [id number] [address] [place] [address], [place] [address] FADY HALEY [address] [place] [address] General Discharge Summary SEX: F AGE: 35 : 1980 3. Maalox. 4. Tylenol. 5. Nitrostat. She will also be placed back on her Corlanor 7.5 mg b.i.d. and metformin 1000 mg b.i.d. CONDITION ON DISCHARGE: Stable with the above treatment. FINAL DISPOSITION: As noted. PROGNOSIS: Guarded given her multiple problems. Christophe Gaxiola MD/ alyssa JOB #: [id number] CC: Christophe Gaxiola MD, Attending Physician Christophe Gaxiola MD, Family Physician
--- NOTE | 2016-10-18 15:33 | CO ---
ADMIT: 09/28/2016 RM/LOC: 410 [facility] MR#: [id number] [id number] [address] FADY HALEY [address] [address] Consultation SEX: F AGE: 35 : 1980 DATE OF CONSULTATION: 09/29/2016 ATTENDING PHYSICIAN: Christophe Gaxiola CONSULTING PHYSICIAN: Simon Casper MD Reason for consult: Chest pain, mildly elevated troponin. HISTORY OF PRESENT ILLNESS: The patient presented to the ER on 09/28/2016 at 6 p.m. with substernal chest tightness. She rated the severity of pain as an 8/10 on presentation. Chest tightness began that afternoon. She had associated symptoms of shortness of breath and diaphoresis. Shortly after presentation, she developed nausea and fatigue. She denied lightheadedness or dizziness, numbness or tingling in extremities. The patient reports that her symptoms felt like the same symptoms she experienced in her chest pain episode in July, which resulted in a cath on 07/26/2016 and a stent of her LAD. On presentation today, the patient still has some chest tightness that she rates as a severity of 5/10. She no longer has associated symptoms of shortness of breath, diaphoresis, nausea, or fatigue. EKG in the ER revealed sinus rhythm and probable left atrial enlargement. The patient's cardiovascular risk factor survey reveals a pertinent positive history for hypertension, high cholesterol, type 2 diabetes. She denies any smoking history. The patient also has a positive history for ischemic cardiomyopathy. Her last echocardiogram was done 07/22/2016 revealing an ejection fraction of 25%, grade 3 diastolic dysfunction. Left atrial, right atrial, and left ventricles were mildly dilated. The patient reports that she often has symptoms of heart failure including dyspnea on exertion, orthopnea, legs, and ankle swelling. She does note that prior to presentation of this chest pain episode, she had a 5-pound weight gain with a week and increased fluid build up in her legs and ankles. The patient's most previous carotid Doppler reveal no carotid artery disease in 2010. Her most previous renal Duplex reveal no abnormalities in 2013. PAST MEDICAL HISTORY: Significant illnesses: Type 2 diabetes, hypertension, high cholesterol, ischemic cardiomyopathy, coronary artery disease. PREVIOUS SURGERIES: Cholecystectomy, bunionectomy, stent LAD in 07/26/2016. ALLERGIES: EGGS, GREEN BEANS, AZITHROMYCIN, PENICILLIN, CEPHALOSPORIN, FLUOXETINE, SERTRALINE, TETANUS VACCINE. FAMILY HISTORY: The patient does have pertinent family history for heart disease as her paternal grandfather had coronary artery disease. The patient denies history of diabetes, cancer, or stroke in her family history. SOCIAL HISTORY: The patient does follow a special diet as she watches her sodium and simple sugar intake for her diabetes and hypertension. She does report use of caffeine and ice tea. She drinks 2-3 cups per day. She denies use of alcohol or drug use abuse. ADMIT: 09/28/2016 RM/LOC: [address] [place] [address] MR#: [id number] [id number] [place] [phone] [place] [address] Consultation SEX: F AGE: 35 : 1980 OCCUPATION: Student. MARITAL STATUS: Single. REVIEW OF SYSTEMS: GENERAL: The patient denies tiring easily. Recent fevers, chills, or sweats. She does report a recent weight gain of 5 pounds within the last couple of days before presentation to the ER. EYES: The patient denies history of blurry vision, glaucoma, cataracts, loss of vision or partial loss of vision. THROAT, MOUTH, AND EARS: The patient denies history of problems with nose, sinus, or throat. She does report using hearing aids. RESPIRATORY: The patient does deny the past medical history of asthma as well as obstructive sleep apnea in which she uses CPAP for. She denies history of emphysema, bronchitis, chronic cough, bloody sputum. GASTROINTESTINAL: The patient does report a history of heartburn and acid reflux. She denies dysphagia, any hernias, stomach ulcers, rectal bleeding, blood stools, or liver disease. The patient does have past medical history of gallbladder problems resulting in cholecystectomy. GENITOURINARY TRACT: The patient does report a history of bladder stones in the past. She denies history of blood in the urine, problems with urination, UTIs or kidney failure. MUSCULOSKELETAL: The patient denies history of arthritis, gout, or muscle pain. ENDOCRINE: The patient does report a history of hypothyroidism a couple of years ago in which she does not receive treatment for. HEMATOLOGY/LYMPHATIC: The patient does have a history of anemia. She currently has a hemoglobin of 8.7 today. The patient denies history of bleeding problems or cancer. NEUROLOGIC: The patient denies a history of chronic headaches, stroke, seizure disorder, numbness, or tingling. PSYCHIATRIC: The patient denies history of mental illness, depression, or anxiety. PHYSICAL EXAMINATION: VITAL SIGNS: Temperature afebrile. Pulse 80, respiratory rate 16, blood pressure 131/72, oxygen 100% on room air. GENERAL: Alert and oriented x3 in no acute distress. HEENT: Normocephalic and atraumatic. No JVD. HEART: Regular rate and rhythm. No murmurs, clicks, rubs, or gallops. LUNGS: Clear to auscultation. ABDOMEN: Soft and nontender. EXTREMITIES: Trace bilateral lower extremity edema. LABORATORY DATA: Sodium 140, potassium 3.8, chloride 103, CO2 of 29, BUN 16, creatinine 1.0, glucose 226. White blood cell count 9.4, hemoglobin 8.7. CK- MB 0.7, troponin 0.087. This was 0.095 on admission to ER. Pro-BNP 573[address]. EKG sinus rhythm probable left atrial enlargement. Chest x-ray, large cardiac silhouette. Mild interstitial markings similar to chest x-ray in July 2016. ADMIT: 09/28/2016 RM/LOC: [address] [place] [address] MR#: [id number] [facility] [address] [place] [id number] FADY HALEY [address] [place] [address] Consultation SEX: F AGE: 35 : 1980 Intake 350, output 1350. ASSESSMENT: 1. Chest pain. 2. Elevated troponin. 3. Hypertension. 4. Diabetes type 2. 5. Heart failure. 6. Dyslipidemia. 7. Coronary artery disease. 8. Ischemic cardiomyopathy. PLAN: We will treat with Lasix for now. If further symptoms, we will either need to do stress or heart cath. I think this is due to congestive heart failure. I will watch her renal function. Blood pressure; also titrate her meds. LOIDA Schwartz Student / Simon Casper MD / alyssa JOB #: [id number] CC: Christophe Gaxiola, Attending Physician Christophe Gaxiola, Family Physician
[2016-12-03] MEDS ORDERED: ELAVIL-DPS50 MG PO (20:12)
[2016-12-03] MEDS ORDERED: CRESTOR40 MG PO (20:12)
[2016-12-03] MEDS ORDERED: GLUCOPHAGE-DPS500 MG PO (20:12)
[2016-12-03] MEDS ORDERED: VITAMIN D1000 UNIT PO (20:13)
[2016-12-03] MEDS ORDERED: SENNA PLUS TAB1 EACH PO (20:13)
[2016-12-03] MEDS ORDERED: PRILOSEC DPS20 MG PO (20:13)
[2016-12-03] MEDS ORDERED: LASIX DPS40 MG PO (20:13)
[2016-12-03] MEDS ORDERED: ASPIRIN EC81 MG PO (20:14)
[2016-12-03] MEDS ORDERED: BRILINTA90 MG PO (20:14)
[2016-12-03] MEDS ORDERED: CORLANOR7.5 MG PO (20:14)
[2016-12-03] MEDS ORDERED: CARVEDILOL25 MG PO (20:14)
[2016-12-03] MEDS ORDERED: AMARYL DPS4 MG PO (20:14)
[2016-12-03] MEDS ORDERED: TOUJEO SOL300 UNIT/1 SQ (20:15)
[2016-12-03] MEDS ORDERED: ENTRESTO 49 MG1 EACH PO (20:15)
[2016-12-03] MEDS ORDERED: NITROSTAT0.4 MG SL (20:15)
[2016-12-03] MEDS ORDERED: KLOR-CON M2020 ME1 PO (20:15)
[2016-12-03] MEDS ORDERED: GLUTOSE 1537.5 GM PO (20:16)
[2016-12-03] MEDS ORDERED: ADVAIR DIS1 PUFF/DO1 IH (20:16)
[2016-12-03] MEDS ORDERED: PROVENTIL HFA6.7 GM IH (20:16)
[2016-12-03] MEDS ORDERED: TYLENOL DPS325 MG PO (20:17)
== END 2016-10-01 14:45 | disposition home or self-care (01) | DRG 291 ==
LOC: ER 17:30 → 4PCU 18:50
PROVIDERS: ADMIT Family Medicine
DX: I13.0 Hypertensive heart and chronic kidney disease with heart failure and stage 1 through stage 4 chronic kidney disease, or unspecified chronic kidney disease (principal); I50.23 Acute on chronic systolic (congestive) heart failure; E11.22 Type 2 diabetes mellitus with diabetic chronic kidney disease; N18.9 Chronic kidney disease, unspecified; D50.9 Iron deficiency anemia, unspecified; R07.9 Chest pain, unspecified; I51.7 Cardiomegaly; F41.1 Generalized anxiety disorder; K57.90 Diverticulosis of intestine, part unspecified, without perforation or abscess without bleeding; F79 Unspecified intellectual disabilities; I25.10 Atherosclerotic heart disease of native coronary artery without angina pectoris; I25.5 Ischemic cardiomyopathy; E78.00 Pure hypercholesterolemia, unspecified; F32.9 Major depressive disorder, single episode, unspecified; G43.909 Migraine, unspecified, not intractable, without status migrainosus; K21.9 Gastro-esophageal reflux disease without esophagitis; E78.5 Hyperlipidemia, unspecified; E03.9 Hypothyroidism, unspecified; Z79.84 Long term (current) use of oral hypoglycemic drugs; Z79.82 Long term (current) use of aspirin; Z95.810 Presence of automatic (implantable) cardiac defibrillator; Z95.5 Presence of coronary angioplasty implant and graft; Z82.49 Family history of ischemic heart disease and other diseases of the circulatory system

== ENCOUNTER → 2016-10-08 | Outpatient (CLI) | payer MEDICARE, MEDICAID ==
[~2016-10-08] MED LIST changes: +ADVAIR DIS1 PUFF/DO1 IH; +AMARYL DPS4 MG PO; +ASPIRIN EC81 MG PO; +CARVEDILOL25 MG PO; +COLACE-DPS100 MG PO; +ELAVIL-DPS50 MG PO; +ENTRESTO 49 MG1 EACH PO; +FERAHEME510 MG/17 IV; +FLUTICASONE PRO16 GM NS; +GLUCOPHAGE1000 MG PO; +LASIX DPS40 MG PO; +PROAIR HFA8.5 GM IH; +PROVENTIL HFA6.7 GM IH; +SENNA PLUS TAB1 EACH PO; +SENOKOT DPS8.6 MG PO; +TOUJEO SOL300 UNIT/1 SQ; +VITAMIN D1000 UNI1 PO
== END | disposition home or self-care (01) ==
LOC: THER.SSS 09:02
DX: D64.9 Anemia, unspecified (principal)